=== PATIENT | male | born 2000 | race Two or more races ===

== ENCOUNTER 2024-11-20 15:26 | Emergency (ER) | payer BC ==
[~2024-11-20] VITALS: Ht 175.3 cm; Wt 49.9 kg
[2024-11-20 15:38] VITALS: BP 114/80; TEMP 98.1
[2024-11-20] MEDS ORDERED: TRIA60LO8 TP (16:07)
[2024-11-20] MEDS ORDERED: DIPH25CA51 PO (16:07)
[2024-11-20 16:13] VITALS: O2SAT 99
[2024-11-21] MEDS ORDERED: TRIA60LO8 TP (09:53)
[2024-11-21] MEDS ORDERED: DIPH25CA51 PO (09:53)
== END 2024-11-20 16:49 | disposition home or self-care (01) ==
LOC: ER 15:37
DX: L25.9 Unspecified contact dermatitis, unspecified cause (principal)

== ENCOUNTER 2024-12-02 20:00 | Emergency (ER) | payer BC ==
[~2024-12-02] VITALS: Ht 175.3 cm; Wt 49.9 kg
[~2024-12-02 20:00] MED LIST: DIPH25CA51 PO; TRIA60LO8 TP
[2024-12-02 20:25] VITALS: BP 94/61; TEMP 97.7; O2SAT 98
== END 2024-12-02 20:50 | disposition home or self-care (01) ==
LOC: ER 20:08
DX: L30.8 Other specified dermatitis (principal); Z79.899 Other long term (current) drug therapy